=== PATIENT | female | born 1960 | race Caucasian/White ===

== ENCOUNTER 2024-05-10 09:02 | Emergency (ER) | payer BC, SELFPAY ==
[2024-05-10 09:07] VITALS: BP 114/84
[2024-05-10 09:43] VITALS: BMI 25.5
[2024-05-10] MEDS: NSS 1000 IV (10:00)
[2024-05-10] MEDS: ZOFRAN 4 MG IV (10:01)
[2024-05-10 10:20] LABS: % Basophils 0.6 % (0-2); % Eosinophils 0.6 % (0-6); % Immature Granulocytes 0.3 % (0-0.5); % Lymphocytes 24.5 % (20.5-51.1); % Monocytes 8.4 % (1.7-9.3); % Neutrophils 65.6 % (42.2-75.2); Absolute Lymphocytes 1.5 10^3/uL (1.2-3.4); Absolute Monocytes 0.5 10^3/uL (0.1-0.6); Absolute Neutrophils 4.1 10^3/uL (1.4-6.5); Hematocrit 42.2 % (37.0-47.0); Hemoglobin 14.9 g/dL (12.0-16.0); Mean Corp Hgb Conc. 35.3 g/dL (33.0-37.0); Mean Corpuscular Hgb 30.5 pg (27.0-31.0); Mean Corpuscular Volume 86.3 fL (81.0-99.0); Mean Platelet Volume 9.4 fL (7.4-10.4); Nucleated Red Blood Cells % 0 %; Platelet Count 273 10^3/uL (130-400); Red Blood Cell Count 4.89 10^6/uL (4.20-5.40); Red Cell Dist. Width 11.9 % (11.5-14.5); White Blood Cell Count 6.3 10^3/uL (4.8-10.8)
[2024-05-10 10:55] LABS: Blood Urea Nitrogen 16 mg/dl (7-17); Calcium 10.5 mg/dl (8.4-10.2); Carbon Dioxide 23 mmol/L (22-30); Chloride 103 mmol/L (98-107); Estimated Creatinine Clearance 90 ml/min; Glucose 82 mg/dl (70-99); Lipase 91 U/L (23-300); Sodium 135 mmol/L (135-145); eGFR > 60.00
--- NOTE | 2024-05-10 11:35 | ED.GENMED ---
History of Present Illness
General
Chief Complaint: Abdominal Symptoms
Source: patient
Exam Limitations: none
Time Seen by Provider: 05/10/24 09:24
History of Present Illness
History of Present Illness:
64-year-old female presents with nausea and vomiting for 3 days. She states she took a dose of her weight loss medication via injection since 5 days ago. This was a delayed dose. She was typically taking them every 7 days however there was a
shortage and she had to wait 10 days and gave her self same dose. No fever. No known sick contacts. No diarrhea. No significant abdominal pain. She cannot keep anything down at home
Phy Exam
Physical Exam
Physical Exam:
General: Well-appearing female no acute respiratory distress
HEENT: Normocephalic atraumatic neck is supple
Heart: Regular rate and rhythm no murmurs
Lungs: Clear no wheeze or rales
Abdomen soft nontender nondistended no guarding or rebound normal bowel
Extremities: No cyanosis
Course
Orders/Labs/Results
Orders:
Orders
05/10/24 09:36
0.9% Sodium Chloride 1000 ml [Nss] 1,000 ml IV BOLUS
Ondansetron Injectable [Zofran] 4 mg IV NOW STA
05/10/24 09:58
Basic Metabolic Panel Urgent
Complete Blood Count/With Diff Urgent
Lipase Urgent
Abnormal Lab Results
05/10/24
09:58
Calcium 10.5 H mg/dl
(8.4-10.2)
05/10/24 09:58
05/10/24 09:58
Vital Signs
Initial and Last Documented VS:
Initial Vital Signs
Temp Pulse Resp BP Pulse Ox
97.6 F 97 16 114/84 98
05/10/24 09:07 05/10/24 09:07 05/10/24 09:07 05/10/24 09:07 05/10/24 09:07
Last Documented Vital Signs
Temp Pulse Resp BP Pulse Ox
97.6 F 97 16 114/84 98
05/10/24 09:07 05/10/24 09:07 05/10/24 09:07 05/10/24 09:07 05/10/24 09:07
MDM/Problems Addressed
Differential Diagnosis Includes:
Nausea vomiting without abdominal pain fever or diarrhea. Question possible viral illness versus gastritis versus medication side effect. Will check for electrolyte abnormality with labs
Reviewed labs. Chemistry profile negative. White blood cell count is normal. Patient feeling somewhat improved after fluids and Zofran. She is now tolerating james juan. Will discharge home with Zofran. Suspect possible side effect from her
weight loss medication.
*Critical Care Note
Total Time (30-74mins, 75-104mins- exclusive of procedures): Not Applicable
Update Note
Update Note:
Patient reexamined tolerating oral fluids with benign abdominal assessment. Initially considered CT scan however not indicated secondary to nontender exam and improvement of symptoms
ED Attending Note
-
Portions of this chart may have been created with voice recognition software.� Occasional wrong word or��sound alike� substitutions may have occurred due to the inherent limitations of voice recognition software.
Discharge Plan
Departure
Patient Disposition: Home (Routine Discharge)
Date of Disposition: 05/10/24
Time of Disposition: 11:37
Patient with high blood pressure during this ER visit?: No
Discharge Problem:
Nausea & vomiting
Prescriptions:
New
ondansetron 4 mg tablet,disintegrating
4 mg PO Q8H PRN (Reason: nausea and vomiting) Qty: 10 0RF
Referrals:
Chad Alvarez MD [Family Provider] -
Activity Restrictions/Additional Instructions:
Drink plenty clear liquids. Use Zofran if needed for nausea. Return if worse otherwise follow-up with your family doctor
Interventions
Interventions:
*Risk Screen - Suicide Last Done: 05/10/24 09:07
*General Assessment Last Done: 05/10/24 09:07
*Neglect/Abuse Screening Last Done: 05/10/24 09:07
ED- Fall Risk Assessment Last Done: 05/10/24 09:43
*ED COVID-19 Vaccine History Last Done: 05/10/24 09:43
UT-Uyrdph-Knkapyyvjk Assessment Last Done: 05/10/24 09:43
Discharge Date and Time
Print Language: PORTUGUESE
[2024-05-10 11:56] VITALS: BP 115/77
== END 2024-05-10 12:00 | disposition home or self-care (01) ==
LOC: EMR 09:02
PROVIDERS: Physician Assistant; EMERGENCY PHYSICIAN Student in an Organized Health Care Education/Training Program; FAMILY PHYSICIAN Family Medicine
DX: R11.2 Nausea with vomiting, unspecified (principal)
CPT/HCPCS: 99284; 96374; 80048; 83690; 85025